=== PATIENT | male | born 1945 | race Caucasian/White ===

== ENCOUNTER → 2019-10-14 | Outpatient (REF) | payer MEDICARE | LOC: M LAB REF 12:34 | PROVIDERS: ATTEND Dermatology | DX: C44.311 Basal cell carcinoma of skin of nose (principal) ==

== ENCOUNTER → 2019-11-09 | Outpatient (REF) | payer MEDICARE | LOC: M LAB REF 08:28 | PROVIDERS: ATTEND Dermatology | DX: C44.311 Basal cell carcinoma of skin of nose (principal); L90.5 Scar conditions and fibrosis of skin ==

== ENCOUNTER → 2020-01-10 | Outpatient (REF) | payer MEDICARE | LOC: M LAB REF 16:00 | PROVIDERS: ATTEND Dermatology | DX: C44.310 Basal cell carcinoma of skin of unspecified parts of face (principal) ==

== ENCOUNTER → 2025-03-16 | Outpatient (CLI) | payer MEDICARE ==
[~2025-03-16] MED LIST: ISOVUE-370 76% 100 ML VIAL As Ordered ONE
== END ==
LOC: M RAD 14:30
PROVIDERS: ATTEND Family Medicine
DX: D38.1 Neoplasm of uncertain behavior of trachea, bronchus and lung (principal); R91.8 Other nonspecific abnormal finding of lung field
CPT/HCPCS: 71260; 82565; Q9967

== ENCOUNTER → 2025-05-02 | Outpatient (CLI) | payer MEDICARE | LOC: M RAD 15:12 | PROVIDERS: ATTEND Internal Medicine Pulmonary Disease | DX: R91.8 Other nonspecific abnormal finding of lung field (principal); R04.2 Hemoptysis ==